=== PATIENT | female | born 2005 | race African-American/Black ===

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

== ENCOUNTER 2024-06-07 09:49 | Emergency (ER) | payer MEDICAID ==
[~2024-06-07] VITALS: Ht 180.3 cm; Wt 82.9 kg
[2024-06-07] MEDS ORDERED: METH4PAK PO (13:14)
[2024-06-07 13:21] VITALS: BP 128/78; PULSE 105; RESP 20; TEMP 98.6; O2SAT 100
== END 2024-06-07 14:10 | disposition home or self-care (01) ==
LOC: ER 09:49
DX: L13.9 Bullous disorder, unspecified (principal)